=== PATIENT | female | born 1990 | race Caucasian/White ===

== ENCOUNTER → 2020-05-02 | Outpatient (CLI) | payer OTHER | END | disposition home or self-care (01) | LOC: STAR 14:16 | PROVIDERS: ATTEND Obstetrics & Gynecology | DX: Z01.818 Encounter for other preprocedural examination (principal); Z11.59 Encounter for screening for other viral diseases | CPT/HCPCS: 36415; 87635 ==

== ENCOUNTER 2020-05-10 18:00 | Inpatient (IN) | payer OTHER ==
[~2020-05-10] VITALS: Ht 157.5 cm; Wt 81.8 kg
[2020-05-10] MEDS ORDERED: OXYTOCIN 30U/ 0.9% NaCL 500ML 500 ML IV PRN (19:07)
[2020-05-10] MEDS: D5%-LACTATED RINGERS 1,000 ML IV SCH (19:07)
[2020-05-10] MEDS ORDERED: OXYTOCIN 30U/ 0.9% NaCL 500ML 500 ML IV ONE (19:07)
[2020-05-10] MEDS ORDERED: FENTANYL PF 100 MCG/2ML IV PRN (19:30)
[2020-05-10] MEDS ORDERED: ONDANSETRON 2MG/ML, 2ML IVPush PRN (19:30)
[2020-05-10] MEDS ORDERED: METOCLOPRAMIDE 5 MG/ML, 2ML IVPush PRN (19:30)
[2020-05-10] MEDS ORDERED: FENTANYL PF 100 MCG/2ML IVPush PRN (19:30)
[2020-05-10] MEDS ORDERED: TERBUTALINE 1 MG/ML, 1ML IVPush PRN (19:30)
[2020-05-10] MEDS ORDERED: SODIUM CITRATE/CITRIC ACID 30 ML UDC PO PRN (19:30)
[2020-05-10] MEDS ORDERED: TERBUTALINE 1 MG/ML, 1ML SQ PRN (19:30)
[2020-05-10] MEDS ORDERED: PENICILLIN GK 5,000,000 UNITS in DEXTROSE 5% 100 ML IVPB ONE (19:30)
[2020-05-10] MEDS: PENICILLIN GK 2,500,000 UNITS in DEXTROSE 5% 100 ML IVPB SCH (19:30)
[2020-05-10] MEDS ORDERED: CALCIUM CARBONATE 500 MG TAB.CHEW PO PRN (19:30)
[2020-05-10 19:45] LABS: BASOPHILS # (AUTO) 0.07 x10^3/uL (0-0.1); BASOPHILS % (AUTO) 1 % (0-1); EOSINOPHILS # (AUTO) 0.07 x10^3/uL (0-0.4); EOSINOPHILS % (AUTO) 1 % (1-7); LYMPHOCYTES # (AUTO) 2.51 x10^3/uL (1-3.4); LYMPHOCYTES % (AUTO) 25 % (22-44); MD NO; MEAN CORPUSCULAR HEMOGLOBIN 30.5 pg (27.0-34.8); MEAN CORPUSCULAR HGB CONC 33.4 g/dL (32.4-35.8); MEAN CORPUSCULAR VOLUME 91.3 fL (80-100); MEAN PLATELET VOLUME 9.9 fL (7.4-10.4); MONOCYTES # (AUTO) 0.84 x10^3/uL (0.2-0.8); MONOCYTES % (AUTO) 8 % (2-9); NEUTROPHILS # (AUTO) 6.55 x10^3/uL (1.8-6.8); NEUTROPHILS % (AUTO) 65 % (42-75); PLATELET COUNT 145 x10^3/uL (130-400); RED BLOOD COUNT 4.15 x10^6/uL (3.82-5.3); RED CELL DISTRIBUTION WIDTH 13.9 % (9.6-15.2)
[2020-05-10] MEDS ORDERED: NEWBORN KIT ONE (19:57)
[2020-05-10] MEDS ORDERED: OXYTOCIN 30U/ 0.9% NaCL 500ML 500 ML ONE (19:57)
[2020-05-10] MEDS ORDERED: LIDOCAINE 1%, 20ML ONE (19:57)
[2020-05-10] MEDS ORDERED: MISOPROSTOL 200 MCG TABLET ONE (19:57)
[2020-05-10] MEDS: LACTATED RINGERS 1,000 ML IV SCH (20:07)
[2020-05-10] MEDS ORDERED: PREN1TAB60 PO (21:01)
[2020-05-10 21:05] VITALS: BP 120/71
[2020-05-11] MEDS: PENICILLIN GK 2,500,000 UNITS in DEXTROSE 5% 100 ML IVPB SCH ×5 (00:13→16:25)
[2020-05-11 00:30] VITALS: BP 121/68
[2020-05-11] MEDS: LACTATED RINGERS 1,000 ML IV SCH ×4 (02:06→11:42)
[2020-05-11] MEDS: D5%-LACTATED RINGERS 1,000 ML IV SCH ×2 (03:07→11:38)
[2020-05-11] MEDS ORDERED: FENTANYL PF 100 MCG/2ML ONE (05:28)
[2020-05-11] MEDS ORDERED: FENTANYL/BUPIV./NS/PF 250 ML EPIDCONT ONE (06:37)
[2020-05-11] MEDS ORDERED: BUPIVACAINE 0.25% ONE (06:37)
[2020-05-11] MEDS ORDERED: FENTANYL/BUPIV./NS/PF 250 ML EPIDCONT SCH (06:55)
[2020-05-11] MEDS ORDERED: ONDANSETRON 2MG/ML, 2ML IVPush PRN (07:00)
[2020-05-11] MEDS ORDERED: NALOXONE 0.4 MG/ML, 1ML IVPush PRN (07:00)
[2020-05-11] MEDS ORDERED: LACTATED RINGERS 1,000 ML IVBOLUS PRN (07:00)
[2020-05-11] MEDS ORDERED: EPHEDRINE 50 MG/ML, 1ML IVPush PRN (07:00)
[2020-05-11] MEDS ORDERED: DIPHENHYDRAMINE 50 MG/ML, 1ML IVPush PRN (07:00)
[2020-05-11] MEDS ORDERED: MISOPROSTOL 200 MCG TABLET PR PRN (17:30)
[2020-05-11] MEDS ORDERED: BISACODYL 10 MG SUPP PR PRN (17:30)
[2020-05-11] MEDS ORDERED: HYDROcodone/APAP 5/325 TABLET PO PRN (17:30)
[2020-05-11] MEDS ORDERED: RHOGAM FROM BLOOD BANK 1 NOTE EA IM/IV ONE (17:30)
[2020-05-11] MEDS ORDERED: ONDANSETRON 2MG/ML, 2ML IV PRN (17:30)
[2020-05-11] MEDS ORDERED: ACETAMINOPHEN 325 MG TABLET PO PRN (17:30)
[2020-05-11] MEDS ORDERED: OXYcodone/APAP 5/325MG TABLET PO PRN (17:30)
[2020-05-11] MEDS ORDERED: DOCUSATE 100 MG CAPSULE ONE (18:15)
[2020-05-11] MEDS ORDERED: IBUPROFEN 600 MG TABLET ONE (18:15)
[2020-05-11] MEDS ORDERED: PRENATAL VIT/IRON/FA 1 EACH TABLET ONE (18:15)
[2020-05-11] MEDS ORDERED: OXYTOCIN 30U/ 0.9% NaCL 500ML 500 ML ONE (18:15)
[2020-05-11] MEDS: DOCUSATE 100 MG CAPSULE PO PRN (18:19)
[2020-05-11] MEDS: OXYTOCIN 30U/ 0.9% NaCL 500ML 500 ML IV SCH (18:19)
[2020-05-11] MEDS ORDERED: IBUPROFEN 800 MG TABLET ONE (18:23)
[2020-05-11] MEDS: IBUPROFEN 800 MG TABLET PO PRN (18:24)
[2020-05-11] MEDS: PRENATAL VIT/IRON/FA 1 EACH TABLET PO SCH (18:24)
[2020-05-11 20:13] VITALS: BP 115/70
[2020-05-12 00:04] VITALS: BP 90/52
[2020-05-12 01:34] LABS: BASOPHILS # (AUTO) 0.05 x10^3/uL (0-0.1); BASOPHILS % (AUTO) 0 % (0-1); EOSINOPHILS # (AUTO) 0.18 x10^3/uL (0-0.4); EOSINOPHILS % (AUTO) 1 % (1-7); LYMPHOCYTES # (AUTO) 1.95 x10^3/uL (1-3.4); LYMPHOCYTES % (AUTO) 12 % (22-44); MD NO; MEAN CORPUSCULAR HEMOGLOBIN 30.6 pg (27.0-34.8); MEAN CORPUSCULAR HGB CONC 33.6 g/dL (32.4-35.8); MEAN CORPUSCULAR VOLUME 90.9 fL (80-100); MEAN PLATELET VOLUME 9.5 fL (7.4-10.4); MONOCYTES # (AUTO) 1.07 x10^3/uL (0.2-0.8); MONOCYTES % (AUTO) 7 % (2-9); NEUTROPHILS # (AUTO) 12.69 x10^3/uL (1.8-6.8); NEUTROPHILS % (AUTO) 80 % (42-75); PLATELET COUNT 128 x10^3/uL (130-400); RED BLOOD COUNT 3.78 x10^6/uL (3.82-5.3)
[2020-05-12] MEDS: IBUPROFEN 800 MG TABLET PO PRN ×2 (02:26→10:49)
[2020-05-12] MEDS: OXYTOCIN 30U/ 0.9% NaCL 500ML 500 ML IV SCH (03:26)
[2020-05-12 03:48] VITALS: BP 98/61
[2020-05-12] MEDS: PRENATAL VIT/IRON/FA 1 EACH TABLET PO SCH (08:25)
[2020-05-12] MEDS: DOCUSATE 100 MG CAPSULE PO PRN (08:26)
[2020-05-12 08:30] VITALS: BP 114/75
[2020-05-12] MEDS ORDERED: IBUP-1223 PO (09:33)
[2020-05-12] MEDS ORDERED: DOCU-131 PO (09:33)
[2020-05-12 12:28] VITALS: BP 135/78
[2020-05-12 16:05] VITALS: BP_SYST 124; BP_SYST 135; BP_DIAS 78; BP_DIAS 82
== END 2020-05-12 19:13 | disposition home or self-care (01) | DRG 807 ==
LOC: LDOP 18:00 → LDIP 18:58 → 2NW 05-11 20:03
PROVIDERS: ADMIT Obstetrics & Gynecology; ATTEND Obstetrics & Gynecology
PROC: 10E0XZZ Delivery of Products of Conception, External Approach (ICD-10-PCS; principal; 2020-05-11)
PROC: 3E0R3BZ Introduction of Anesthetic Agent into Spinal Canal, Percutaneous Approach (ICD-10-PCS; 2020-05-11)
PROC: 00HU33Z Insertion of Infusion Device into Spinal Canal, Percutaneous Approach (ICD-10-PCS; 2020-05-11)
PROC: 0HQ9XZZ Repair Perineum Skin, External Approach (ICD-10-PCS; 2020-05-11)
PROC: 0UQMXZZ Repair Vulva, External Approach (ICD-10-PCS; 2020-05-11)
DX: O99.824 Streptococcus B carrier state complicating childbirth (principal); Z37.0 Single live birth; O71.82 Other specified trauma to perineum and vulva; Z3A.39 39 weeks gestation of pregnancy
CPT/HCPCS: 36415; J7121; 84112; 85025; 86592; 86850; 86900; G0378; J2540; J3010; J2590; J7120